=== PATIENT | male | born 1955 | race American Indian/Alaskan Native ===

== ENCOUNTER 2018-05-07 19:53 | Inpatient (IN) | payer OTHER ==
[2018-05-07 20:22] LABS: Basophils # (Auto) 0.1 K/mm3 (0.0-0.1); Basophils % (Auto) 0.6 % (0.0-1.8); Hematocrit 40.4 % (35.5-45.6); Hemoglobin 13.4 gm/dl (11.8-15.2); Lymphocytes # (Auto) 0.5 K/mm3 (1.2-5.4); Lymphocytes % (Auto) 4.2 % (13.4-35.0); Mean Corpuscular HGB Conc 33 % (32-34); Mean Corpuscular Hemoglobin 31 pg (28-32); Mean Corpuscular Volume 92 fl (84-94); Monocytes # (Auto) 0.8 K/mm3 (0.0-0.8); Monocytes % (Auto) 7.4 % (0.0-7.3); Platelet Count 245 K/mm3 (140-440); Red Blood Count 4.38 M/mm3 (3.65-5.03); Red Cell Distribution Width 13.4 % (13.2-15.2)
--- NOTE | 2018-05-07 20:28 | Emergency Department Report ---
HPI - General Chief Complaint: Alcohol Time Seen by Provider: 05/07/18 20:19 - HPI HPI: 63-year-old male presents to the emergency department with what appears to be alcohol intoxication. Patient does admit to heavy alcohol use this evening and says that he drinks just about every day. He says that he walked here this evening but is unable to give me a reason as to why he would choose to walk to the hospital. He does not have any particular complaints of pain. When asked if there is something that I can do for him, the patient says "take me to see my mother." Patient says that his mother is "in heaven." While he did mention that he would not mind being that he could see his mother, he denies any suicidal or homicidal ideations. The patient does not appear to have been at this hospital previously, at least during the time of this current EMR, and is otherwise a poor historian regarding his past medical history or his current reasons for visit. It turns out that this patient arrived to the emergency department via EMS. Labs show no blood alcohol on the system. Apparently the patient was found altered in someone's front yard and they called for EMS. ED Past Medical Hx - Past Medical History Previous Medical History?: Yes Hx Hypertension: Yes - Surgical History Past Surgical History?: No - Social History Smoking Status: Current Every Day Smoker Substance Use Type: Alcohol ED Review of Systems ROS: Stated complaint: ETOH Other details as noted in HPI Comment: Unobtainable due to pts medical conditions Physical Exam - Physical Exam Physical Exam: GENERAL: The patient is well-developed well-nourished. HENT: Normocephalic. Atraumatic. Patient has moist mucous membranes. EYES: Extraocular motions are intact. Pupils equal reactive to light bilaterally. NECK: Supple. Trachea is midline. CHEST/LUNGS: Clear to auscultation. There is no respiratory distress noted. HEART/CARDIOVASCULAR: Regular. There is no tachycardia. There is no murmur. ABDOMEN: Abdomen is soft, nontender. Patient has normal bowel sounds. There is no abdominal distention. SKIN: Skin is warm and dry. NEURO: The patient is awake but confused. No apparent sensory or motor deficits. The patient has normal speech. The patient is unable to answer many questions including the current date, the reasons he is here and has started to display some agitation. The patient is repeating some different numbers. Withdraws from painful stimuli. MUSCULOSKELETAL: There is no tenderness or deformity. There is no limitation range of motion. There is no evidence of acute injury. ED Medical Decision Making - Lab Data Result diagrams: 05/07/18 20:12 05/07/18 20:12 - EKG Data -: EKG Interpreted by Me EKG shows normal: sinus rhythm, axis, intervals, QRS complexes, ST-T waves ( nonspecific ST-T waves) Rate: normal - EKG Data When compared to previous EKG there are: previous EKG unavailable Interpretation: nonspecific ST-T wave henry - Radiology Data Radiology results: report reviewed PROCEDURE: CT HEAD/BRAIN WO CON TECHNIQUE: Computerized tomography of the head was performed without contrast material. HISTORY: AMS COMPARISON: No prior studies are available for comparison. FINDINGS: Brain: Brain density appears normal. No evidence of intracranial hemorrhage. No parenchymal hemorrhage, mass lesions or mass effect are seen. No abnormal extraxial fluid collects or masses are seen. Ventricles: Ventricles are normal size and are midline. Bone Windows: No evidence of skull fracture. Paranasal sinuses: Visualized portions are clear. Mastoid air cells: Clear IMPRESSION: Negative exam. Transcribed By: DFManasa Dictated By: TRAMAINE DELGADO MD Electronically Authenticated By: TRAMAINE DELGADO MD Signed Date/Time: 05/07/18 220 - Medical Decision Making I first, through triage, it appeared as if the patient was here for alcohol use and the patient even admitted to drinking heavily and daily. However the blood alcohol level was negative and this was checked twice. Then it came to light that the patient had arrived by EMS, instead of walking here, and had been found previously in someone's front yard. When this became more of an altered mental status issue, a CT of the head without contrast was done and resulted as negative for any bleed, shift, mass, ischemia or any other acute process. Patient's labs have been mostly unremarkable and do not show any etiology of his symptoms thus far, except for the patient has some renal insufficiency with a creatinine of 2.1 and a GFR of 38. We are waiting for urine for a urinalysis and urine drug screen. Patient was having some agitation and trying to get out of bed and wander so he was given a small dose of Ativan to help him rest and complete his workup. Vital signs stable throughout his ED course including being afebrile. Patient will be admitted to hospital for his altered mental status for further evaluation and any necessary treatment, and the patient has been accepted for admission by the hospitalist, Dr. Sky. - Differential Diagnosis Substance abuse, psychosis, dementia, UTI, dysrythmia Critical Care Time: No Critical care attestation.: If time is entered above; I have spent that time in minutes in the direct care of this critically ill patient, excluding procedure time. ED Disposition Clinical Impression: Renal insufficiency Altered mental status Qualifiers: Altered mental status type: unspecified Qualified Code(s): R41.82 - Altered mental status, unspecified Hypertension Qualifiers: Hypertension type: essential hypertension Qualified Code(s): I10 - Essential ( primary) hypertension Disposition: OP ADMIT IP TO THIS HOSP Is pt being admited?: Yes Condition: Fair Instructions: Hypertension (ED) Referrals: PRIMARY CARE, [Primary Care Provider] - 3-5 Days Time of Disposition: 22:53
[2018-05-07] MEDS ORDERED: VITAMIN B-1 100 MG, FOLVITE 1 MG, INFUVITE 10 ML in NACL 0.9% 1000 ML 1,000 ML IV ONE (20:34)
[2018-05-07 20:35] LABS: Calcium 10.1 mg/dL (8.4-10.2)
[2018-05-07] MEDS ORDERED: NACL 0.9% 1000 ML 1,000 ML IV ONE (21:03)
[2018-05-07 21:05] LABS: Albumin 5.1 g/dL (3.9-5); Bilirubin,Direct 0.3 mg/dL (0-0.2)
[2018-05-07] MEDS ORDERED: ATIVAN IV ONE (21:19)
--- NOTE | 2018-05-07 22:02 | Cat Scan Report ---
FINAL REPORT PROCEDURE: CT HEAD/BRAIN WO CON TECHNIQUE: Computerized tomography of the head was performed without contrast material. HISTORY: AMS COMPARISON: No prior studies are available for comparison. FINDINGS: Brain: Brain density appears normal. No evidence of intracranial hemorrhage. No parenchymal hemorrhage, mass lesions or mass effect are seen. No abnormal extraxial fluid collects or masses are seen. Ventricles: Ventricles are normal size and are midline. Bone Windows: No evidence of skull fracture. Paranasal sinuses: Visualized portions are clear. Mastoid air cells: Clear IMPRESSION: Negative exam.
[2018-05-07] MEDS ORDERED: TYLENOL PO PRN (22:49)
[2018-05-07] MEDS ORDERED: NACL 0.9% 1000 ML 1,000 ML IV SCH (23:00)
[2018-05-08 01:20] LABS: Creatine Kinase MB 42.5 ng/mL (0.0-4.0)
[2018-05-08] MEDS ORDERED: SODIUM BICARBONATE 150 MEQ in D5W 1,000 ML IV SCH (05:00)
--- NOTE | 2018-05-08 05:05 | History and Physical Report ---
CHIEF COMPLAINT: Change in mental status. HISTORY OF PRESENT ILLNESS: The patient is a 63-year-old man, brought to the Emergency Room with what the Emergency Room described as what appears to be an appearance of somebody who had alcohol intoxication. The patient admitted to the Emergency Room interview to be drinking alcohol heavily every day. The patient said he walked to the hospital, but could not explain why he had to walk to the hospital. He has no history of pain. He has no history of shortness of breath. The patient presented with state of confusion. The patient denied history of fever or chills and denied history of nausea or vomiting. The patient is a poor historian, who could not give an account of why he was brought to the Emergency Room. He claimed that he walked to the Emergency Room when we found that the patient was brought in by EMS and EMS said that the patient was found in somebody's front yard with confusion. PAST MEDICAL HISTORY: Pertinent for hypertension. PAST SURGICAL HISTORY: Unremarkable. FAMILY HISTORY: Family history is noncontributory. SOCIAL HISTORY: The patient drinks alcohol daily, smokes cigarettes, and does not use illicit drugs. MEDICATIONS: The patient's home medication is not known. ALLERGIES: There are no known drug allergies. REVIEW OF SYSTEMS: CONSTITUTIONAL: There is no fever, no chills, no diaphoresis. HEENT: There is no headache or sore throat. CARDIOVASCULAR SYSTEM: There is no chest pain or orthopnea. RESPIRATORY: There is no shortness of breath or cough. GASTROINTESTINAL SYSTEM: There is no nausea, no vomiting, no abdominal pain, diarrhea or constipation. NEUROLOGICAL SYSTEM: Altered mental status noted. No numbness, no dizziness. MUSCULOSKELETAL SYSTEM: There is no joint pain or swelling. DERMATOLOGICAL SYSTEM: There is no skin rash or itching. GENITOURINARY SYSTEM: There is no dysuria, hematuria or flank pain. Rest of system review is normal. PHYSICAL EXAMINATION: GENERAL: At the time of exam, the patient was found to be alert, oriented to person only, and not in acute distress. VIAL SIGNS: Show temperature of 98.9 degrees Fahrenheit, pulse of 92, respirations 18, blood pressure 167/90, O2 sat of 98% on room air. HEENT: Showed pupils to be equal, round, reactive to light and accommodation. Extraocular muscles are intact. NECK: Supple with no JVD or carotid bruit. CARDIOVASCULAR SYSTEM: Showed normal first and second heart sounds with no gallops or murmurs. RESPIRATORY SYSTEM: Showed good air entry on both sides of the lungs with no abnormal breath sounds. GASTROINTESTINAL SYSTEM: Showed abdomen to be full, soft, nontender with no organomegaly or rigidity. NEUROLOGICAL: Showed the patient to be confused, but with no focal deficit. MUSCULOSKELETAL SYSTEM: Showed no joint swelling or tenderness. DERMATOLOGICAL SYSTEM: Showed some hypertrophic scar in the anterior chest wall area. GENITOURINARY SYSTEM: Showed no costovertebral angle tenderness. PERTINENT LABORATORY AND IMAGING STUDIES: The patient had a CT of the head without contrast done that shows no acute intracranial findings. Lab results; the patient has CBC done with normal white count, normal hemoglobin and normal hematocrit with CBC differential showing elevated monocyte count of 7.4 and elevated segmented neutrophil count of 87.8. The patient's chemistry showed elevated BUN of 14 with elevated creatinine of 2.1 and the patient's ammonia level was normal. The patient's cardiac enzymes show high total CPK of 3081 with high CK-MB of 42.5, and normal CK-MB percentage index and normal troponin. The patient's TSH level came back normal. Toxicology screen shows normal salicylate, normal acetaminophen level with unremarkable alcohol level. DIAGNOSES: 1. Altered mental status. 1. Renal insufficiency. 2. Rhabdomyolysis. PLAN: 1. The patient will be admitted to telemetry. 2. The patient will have Nephrology consult with Dr. Darby Wise to manage his renal insufficiency. 3. The patient will have basic metabolic panel done in the morning and will have cardiac enzymes checked q. 6 hours x 2 more levels. 4. The patient will be on IV normal saline at 75 mL an hour. 5. The patient will be on heparin 5000 units subcutaneous q. 12 hours for DVT prophylaxis. 6. The patient will be on CIWA protocol and will be on oxygen via nasal cannula 2 liters per minute. JOB# [id number] OCN/NTS
[2018-05-08 05:14] LABS: Bilirubin,Urine NEG (Negative); Blood,Urine LG (Negative); Color,Urine Amber (Yellow); Hyaline Casts,Urine 4 /LPF; Mucus,Urine FEW /HPF; RBC,Urine < 1.0 /HPF (0.0-6.0)
[2018-05-08 05:21] LABS: Amphetamine Screen,Urine PRESUMPTIVE NEGATIVE; Benzodiazepines Screen,Urine PRESUMPTIVE NEGATIVE; Cannabinoid Screen,Urine PRESUMPTIVE NEGATIVE; Cocaine Screen,Urine PRESUMPTIVE NEGATIVE; Methadone Screen,Urine PRESUMPTIVE NEGATIVE; Opiate Screen,Urine PRESUMPTIVE NEGATIVE
[2018-05-08 06:48] LABS: BUN/Creatinine Ratio 29; Blood Urea Nitrogen 43 mg/dL (9-20); Calcium 9.2 mg/dL (8.4-10.2); Hemolysis Index 3
[2018-05-08 06:49] LABS: Creatine Kinase MB 50.5 ng/mL (0.0-4.0)
--- NOTE | 2018-05-08 08:55 | Consultation ---
History of Present Illness - Reason for Consult Consult date: 05/08/18 acute renal failure - History of Present Illness This is a 63 year old male who presented to the hospital via EMS for evaluation of Altered Mental Status. Patient Underwent Ct scan of head which was negative. Patient is currently awake and alert and oriented and states that he passed out yesterday from drinking too much beer. Patient states that he drinks a 6-pack can of beer most weekends. He denies smoking. States his appetite is good and denies any nausea/vomiting or diarrhea. Patient states the only medication he takes is Naproxen due to having arthritic pain in his knees. Patient denies history of Hypertension. States he saw [place] doctor for check -up on 02/20/2018 and was told everything was fine for his age per patient. Pertinent labs revealed and elevated serum creatinine of 2.1 on admission which has trend down to 1.5 today on IV hydration. Baseline serum creatinine unknown. We are being consulted for management of this patient's Acute Renal Failure. Past History Past Medical History: other (Denies history of Hypertension) Past Surgical History: Other (Has had Right hip replacement) Social history: alcohol abuse, other (. Drinks beer.) Family history: hypertension Medications and Allergies Allergies Allergy/AdvReac Type Severity Reaction Status Date / Time No Known Allergies Allergy Unverified 05/07/18 19:59 Home Medications Medication Instructions Recorded Confirmed Last Taken Type Naproxen Sodium [Aleve] 220 mg PO Q8H PRN 05/08/18 05/08/18 Unknown History Sildenafil Citrate [Viagra] 100 mg PO QDAY PRN 05/08/18 05/08/18 Unknown History Active Meds: Active Medications Acetaminophen (Tylenol) 650 mg PO Q4H PRN PRN Reason: Fever >101 Heparin Sodium (Porcine) (Heparin) 5,000 unit SUB-Q Q12HR BRISSA Sodium Bicarbonate 150 meq/ (Dextrose) 1,150 mls @ 75 mls/hr IV DIRECT BRISSA Stop: 05/08/18 20:19 Last Admin: 05/08/18 05:54 Dose: 75 mls/hr Review of Systems Constitutional: fatigue, no weight loss, no weight gain, no fever, no chills, no sweats, no weakness, no malaise, no poor appetite Ears, nose, mouth and throat: no ear pain, no ear discharge, no tinnitis, no decreased hearing, no nose pain, no nasal congestion Cardiovascular: no chest pain, no orthopnea, no palpitations, no rapid/ irregular heart beat, no edema, no syncope, no lightheadedness Respiratory: no cough with sputum, no excessive sputum, no hemoptysis, no shortness of breath, no dyspnea on exertion Gastrointestinal: no abdominal pain, no nausea, no vomiting, no diarrhea, no constipation, no change in bowel habits Genitourinary Male: no hematuria, no flank pain, no discharge, no urinary frequency, no urinary hesitancy Musculoskeletal: no neck stiffness, no neck pain, no shooting arm pain, no arm numbness/tingling, no low back pain, no shooting leg pain, no leg numbness/ tingling Integumentary: no rash, no pruritis, no redness, no sores, no wounds, no jaundice Neurological: no paralysis, no weakness, no parathesias, no numbness, no tingling, no seizures, no syncope, no tremors Psychiatric: no anxiety, no memory loss, no change in sleep habits, no sleep disturbances, no insomnia, no hypersomnia, no change in appetite, no change in libido Endocrine: no cold intolerance, no heat intolerance, no polyphagia, no excessive thirst, no polydipsia, no polyuria Hematologic/Lymphatic: no easy bruising, no easy bleeding, no lymphadenopathy Exam - Vital Signs Vital signs: Vital Signs Temp Pulse Resp BP Pulse Ox 98.9 F 92 H 18 167/90 98 05/07/18 20:32 05/07/18 20:32 05/07/18 20:32 05/07/18 20:32 05/07/18 20:32 - General Appearance General appearance: well-developed, appears stated age EENT: ATNC, PERRL, hearing intact, vision intact Neck: Present: neck supple, trachea midline Respiratory: Clear to Ascultation Heart: regular, S1S2 Gastrointestinal: Present: normoactive bowel sounds Integumentary: warm and dry Neurologic: alert and oriented x3 Musculoskeletal: Present: other (No edema) Psychiatric: mood/affect appropriate Results - Lab Results 05/07/18 20:12 05/08/18 05:31 Most recent lab results Calcium 9.2 mg/dL (8.4-10.2) 05/08/18 05:31 Assessment and Plan Acute Renal Failure likely secondary to Prerenal Azotemia vs AIN due to NSAID use Naproxen with possible underlying CKD: -Renal function reviewed. Serum creatinine trend down to 1.5 today from 2.1 yesterday, on IV hydration -Will obtain renal ultrasound to rule out obstruction -Continue with IV hydration but switch to NS@ 75 ml/hr -Monitor blood pressures, patient denies having Hypertension -Obtain urine lytes and SPEP -Will obtain vasculitis work-up if renal function worsen -Recheck renal panel in a.m -Monitor I/O's -Obtain daily weights -Avoid Nephrotoxic agents, advised to stop Naproxen and all NSAID's -Will monitor renal function closely Metabolic Acidosis: -Improving -On Sodium Bicarbonate 150 meq in D5W@ 75 ml/hr -Will discontinue bicarb drip and start oral sodium bicarbonate 650 mg po BID Altered Mental Status: -CT of head- Negative -As per primary team Alcohol Abuse: -Blaster Helper on cessation -As per primary
--- NOTE | 2018-05-08 09:51 | Progress Note ---
Assessment and Plan Assessment and plan: --Status post fall ; Probably secondary to alcohol intoxication, fall precautions Physical therapy as needed --History of alcohol intake; closely monitor for withdrawal symptoms Currently no agitation or tremulousness, Ativan as needed, CIWA protocol as needed Counseling done advised weight alcohol intake, thiamine and folic acid --Acute kidney injury; secondary to vasomotor nephropathy Renal function significantly improved, closely monitor, avoid nephrotoxins, nephrology following --Rhabdomyolysis; IV hydration, put output monitoring Closely monitor renal function --History of recreational drug use; marijuana Counseling done advised to quit recreational drug use --DVT prophylaxis; Lovenox Closely monitor the patient and adjust the management as needed Stable to be transferred out of telemetry to medical floor Ambulate as tolerated Possible discharge home tomorrow if stable History Interval history: Patient seen and examined medical records reviewed Admitted with alcohol intoxication and status post fall Patient feels better today No tremulousness or agitation Denies headache or dizziness Alert awake oriented 3 Vital signs reviewed Hospitalist Physical - Constitutional Vitals: Temp Pulse Resp BP Pulse Ox 97.5 F L 62 20 138/77 100 05/08/18 08:57 05/08/18 08:57 05/08/18 08:57 05/08/18 08:57 05/08/18 08:57 General appearance: Present: no acute distress, well-nourished - EENT Eyes: Present: PERRL, EOM intact - Neck Neck: Present: supple, normal ROM - Respiratory Respiratory effort: normal Respiratory: negative: rales, rhonchi, wheezing - Cardiovascular Rhythm: regular Heart Sounds: Present: S1 & S2 - Extremities Extremities: no ischemia, No edema - Abdominal General gastrointestinal: soft, non-tender, non-distended, normal bowel sounds - Integumentary Integumentary: Present: clear, warm - Psychiatric Psychiatric: appropriate mood/affect, cooperative - Neurologic Neurologic: CNII-XII intact, moves all extremities Results - Labs CBC & Chem 7: 05/07/18 20:12 05/08/18 05:31 Labs: Laboratory Last Values WBC 11.0 K/mm3 (4.5-11.0) 05/07/18 20:12 RBC 4.38 M/mm3 (3.65-5.03) 05/07/18 20:12 Hgb 13.4 gm/dl (11.8-15.2) 05/07/18 20:12 Hct 40.4 % (35.5-45.6) 05/07/18 20:12 MCV 92 fl (84-94) 05/07/18 20:12 MCH 31 pg (28-32) 05/07/18 20:12 MCHC 33 % (32-34) 05/07/18 20:12 RDW 13.4 % (13.2-15.2) 05/07/18 20:12 Plt Count 245 K/mm3 (140-440) 05/07/18 20:12 Lymph % (Auto) 4.2 % (13.4-35.0) L 05/07/18 20:12 [place] % (Auto) 7.4 % (0.0-7.3) H 05/07/18 20:12 Eos % (Auto) 0.0 % (0.0-4.3) 05/07/18 20:12 Baso % (Auto) 0.6 % (0.0-1.8) 05/07/18 20:12 Lymph # 0.5 K/mm3 (1.2-5.4) L 05/07/18 20:12 [place] # 0.8 K/mm3 (0.0-0.8) 05/07/18 20:12 Eos # 0.0 K/mm3 (0.0-0.4) 05/07/18 20:12 Baso # 0.1 K/mm3 (0.0-0.1) 05/07/18 20:12 Seg Neutrophils % 87.8 % (40.0-70.0) H 05/07/18 20:12 Seg Neutrophils # 9.7 K/mm3 (1.8-7.7) H 05/07/18 20:12 Sodium 144 mmol/L (137-145) 05/08/18 05:31 Potassium 4.5 mmol/L (3.6-5.0) 05/08/18 05:31 Chloride 104.9 mmol/L (98-107) 05/08/18 05:31 Carbon Dioxide 22 mmol/L (22-30) 05/08/18 05:31 Anion Gap 22 mmol/L 05/08/18 05:31 BUN 43 mg/dL (9-20) H 05/08/18 05:31 Creatinine 1.5 mg/dL (0.8-1.5) 05/08/18 05:31 Estimated GFR 57 ml/min 05/08/18 05:31 BUN/Creatinine Ratio 29 % 05/08/18 05:31 Glucose 91 mg/dL (75-100) 05/08/18 05:31 Calcium 9.2 mg/dL (8.4-10.2) 05/08/18 05:31 Total Bilirubin 1.20 mg/dL (0.1-1.2) 05/07/18 20:26 Direct Bilirubin 0.3 mg/dL (0-0.2) H 05/07/18 20:26 Indirect Bilirubin 0.9 mg/dL 05/07/18 20:26 AST 125 units/L (5-40) H 05/07/18 20:26 ALT 55 units/L (7-56) 05/07/18 20:26 Alkaline Phosphatase 52 units/L (35-129) 05/07/18 20:26 Ammonia 25.0 umol/L (25-60) 05/07/18 20:58 Total Creatine Kinase 2778 units/L (55-170) H 05/08/18 05:31 CK-MB (CK-2) 50.5 ng/mL (0.0-4.0) H 05/08/18 05:31 CK-MB (CK-2) Rel Index 1.8 (0-4) 05/08/18 05:31 Troponin T < 0.010 ng/mL (0.00-0.029) 05/08/18 05:31 Total Protein 9.2 g/dL (6.3-8.2) H 05/07/18 20:26 Albumin 5.1 g/dL (3.9-5) H 05/07/18 20:26 Albumin/Globulin Ratio 1.2 % 05/07/18 20:26 TSH 0.935 mlU/mL (0.270-4.200) 05/07/18 20:26 Urine Color Noa (Yellow) 05/08/18 04:43 Urine Turbidity Slightly-cloudy (Clear) 05/08/18 04:43 Urine pH 5.0 (5.0-7.0) 05/08/18 04:43 Ur Specific [place] 1.027 (1.003-1.030) 05/08/18 04:43 Urine Protein 100 mg/dl mg/dL (Negative) 05/08/18 04:43 Urine Glucose (UA) Neg mg/dL (Negative) 05/08/18 04:43 Urine Ketones 20 mg/dL (Negative) 05/08/18 04:43 Urine Blood Lg (Negative) 05/08/18 04:43 Urine Nitrite Neg (Negative) 05/08/18 04:43 Urine Bilirubin Neg (Negative) 05/08/18 04:43 Urine Urobilinogen 2.0 mg/dL (<2.0) 05/08/18 04:43 Ur Leukocyte Esterase Neg (Negative) 05/08/18 04:43 Urine WBC (Auto) 1.0 /HPF (0.0-6.0) 05/08/18 04:43 Urine RBC (Auto) < 1.0 /HPF (0.0-6.0) 05/08/18 04:43 U Epithel Cells (Auto) 1.0 /HPF (0-13.0) 05/08/18 04:43 Hyaline Casts 4 /LPF 05/08/18 04:43 Urine Mucus Few /HPF 05/08/18 04:43 Salicylates < 0.3 mg/dL (2.8-20.0) L 05/07/18 20:12 Urine Opiates Screen Presumptive negative 05/08/18 04:43 Urine Methadone Screen Presumptive negative 05/08/18 04:43 Acetaminophen < 5.0 ug/mL (10.0-30.0) L 05/07/18 20:12 Ur Barbiturates Screen Presumptive negative 05/08/18 04:43 Ur Phencyclidine Scrn Presumptive negative 05/08/18 04:43 Ur Amphetamines Screen Presumptive negative 05/08/18 04:43 U Benzodiazepines Scrn Presumptive negative 05/08/18 04:43 Urine Cocaine Screen Presumptive negative 05/08/18 04:43 U Marijuana (THC) Screen Presumptive negative 05/08/18 04:43 Drugs of Abuse Note Disclamer 05/08/18 04:43 Plasma/Serum Alcohol < 0.01 % (0-0.07) 05/07/18 20:58
[2018-05-08] MEDS ORDERED: NACL 0.9% 1000 ML 1,000 ML IV SCH (10:00)
[2018-05-08] MEDS: SODIUM BICARBONATE PO SCH ×2 (10:45→22:45)
[2018-05-08] MEDS: HEPARIN SUB-Q SCH ×2 (10:45→22:51)
[2018-05-08] MEDS ORDERED: ATIVAN IV PRN (11:30)
[2018-05-08] MEDS: FOLVITE PO SCH (12:49)
[2018-05-08] MEDS: VITAMIN B-1 PO SCH (12:49)
[2018-05-08 18:39] LABS: Creatinine,Urine 114.6 mg/dL (0.1-20.0)
[2018-05-09 06:42] LABS: Basophils # (Auto) 0.1 K/mm3 (0.0-0.1); Basophils % (Auto) 1.2 % (0.0-1.8); Eosinophils # (Auto) 0.1 K/mm3 (0.0-0.4); Eosinophils % (Auto) 1.2 % (0.0-4.3); Hematocrit 36.2 % (35.5-45.6); Hemoglobin 12.1 gm/dl (11.8-15.2); Lymphocytes # (Auto) 1.1 K/mm3 (1.2-5.4); Lymphocytes % (Auto) 26.1 % (13.4-35.0); Mean Corpuscular HGB Conc 33 % (32-34); Mean Corpuscular Hemoglobin 31 pg (28-32); Mean Corpuscular Volume 93 fl (84-94); Monocytes # (Auto) 0.5 K/mm3 (0.0-0.8); Monocytes % (Auto) 12.4 % (0.0-7.3); Platelet Count 196 K/mm3 (140-440); Red Blood Count 3.91 M/mm3 (3.65-5.03); Red Cell Distribution Width 13.6 % (13.2-15.2)
[2018-05-09 07:02] LABS: BUN/Creatinine Ratio 26; Blood Urea Nitrogen 23 mg/dL (9-20); Calcium 8.5 mg/dL (8.4-10.2); Hemolysis Index 4
[2018-05-09] MEDS: VITAMIN B-1 PO SCH (09:52)
[2018-05-09] MEDS: FOLVITE PO SCH (09:52)
[2018-05-09] MEDS: SODIUM BICARBONATE PO SCH (09:52)
[2018-05-09] MEDS: HEPARIN SUB-Q SCH (09:53)
--- NOTE | 2018-05-09 11:09 | Discharge Summary ---
Providers - Providers Date of Admission: 05/07/18 22:45 Date of discharge: 05/09/18 Attending physician: ARTI MURCIA 05/07/18 22:46 Consult to Physician [CONS] Routine Comment: Consulting Provider: RAMONITA MICHAEL Physician Instructions: Reason For Exam: RENAL INSUFFICIENCY Primary care physician: [employer] Hospitalization Reason for admission: altered level of consciousness/status post fall/acute kidney injury Condition: Fair Pertinent studies: CT head without contrast; no acute abnormality Hospital course: 63-year-old male patient with significant past medical history of hypertension and alcohol use follows at the [facility], was brought by the EMS found wandering in some magali as his front yard confused. Patient was noted to be metabolic encephalopathy at the time of admission Admitted to the hospital symptomatically managed Workup is consistent with acute kidney injury, rhabdomyolysis Symptomatically managed Closely monitor for alcohol withdrawal symptoms, placed on CIWA protocol Symptoms significantly improved, ambulatory and tolerating oral nutrition Patient's CK levels improved from 3081 - 1883 Renal failure completely resolved, likely imbalance corrected Today patient is comfortable in no new complaints Vital signs reviewed stable Physical examination no new changes Patient [facility] me [facility], check CK levels and BMP Patient verbalized understanding DC planning per case management Discharge Diagnosis: --Metabolic encephalopathy present on admission; resolved --Status post fall ; Probably secondary to alcohol intoxication, fall precautions --History of alcohol intake; no alcohol withdrawal symptoms --Acute kidney injury; secondary to vasomotor nephropathy, resolved --Rhabdomyolysis; IV hydration, put output monitoring --History of recreational drug use; marijuana counseling done --Chronic alcohol use; counseling done Disposition: DC-01 TO HOME OR SELFCARE Time spent for discharge: 31 min Core Measure Documentation - Palliative Care Palliative Care/ Comfort Measures: Not Applicable - Core Measures Any of the following diagnoses?: none Exam - Constitutional Vitals: Temp Pulse Resp BP Pulse Ox 97.5 F L 70 16 114/74 99 05/09/18 06:08 05/09/18 06:08 05/09/18 06:08 05/09/18 06:08 05/09/18 06:08 General appearance: Present: no acute distress, well-nourished - EENT Eyes: Present: PERRL, EOM intact - Neck Neck: Present: supple, normal ROM - Respiratory Respiratory effort: normal Respiratory: negative: rales, rhonchi, wheezing - Cardiovascular Rhythm: regular Heart Sounds: Present: S1 & S2 - Extremities Extremities: no ischemia, No edema Peripheral Pulses: within normal limits - Abdominal General gastrointestinal: Present: soft, non-tender, non-distended, normal bowel sounds - Integumentary Integumentary: Present: clear, warm - Musculoskeletal Musculoskeletal: strength equal bilaterally - Psychiatric Psychiatric: appropriate mood/affect, cooperative - Neurologic Neurologic: CNII-XII intact, moves all extremities Plan Activity: advance as tolerated, fall precautions Diet: regular Additional Instructions: Advised to quit Alcohol and recreational drug marijuana use. Advised patient to take plenty oral fluids. Fall precautions, . Check CPK, BMP in 2-3 days at PMD office Follow up with: PRIMARY CARE, [Primary Care Provider] - 3-5 Days Prescriptions: Folic Acid [Folvite] 1 mg PO QDAY #30 tablet Thiamine [Vitamin B-1] 100 mg PO QDAY #30 tablet
--- NOTE | 2018-05-09 11:50 | Progress Note ---
Assessment and Plan Acute Renal Failure likely secondary to Prerenal Azotemia vs AIN due to NSAID use Naproxen with possible underlying CKD: -Renal function reviewed. Serum creatinine trend down to 0.9 today, normalized on IV hydration -On IV hydration with NS@ 75 ml/hr -Monitor blood pressures, patient denies having Hypertension -Urine lytes reviewed -Monitor I/O's -Obtain daily weights -Avoid Nephrotoxic agents, advised to stop Naproxen and all NSAID's -Will monitor renal function closely -Follow-up with Nephrology in 2 weeks of discharge at [facility] located at [address] [place] [address]. Metabolic Acidosis: -Resolved -Discontinue oral sodium bicarbonate 650 mg po BID Altered Mental Status: -CT of head- Negative -As per primary team Alcohol Abuse: -Jumpbasting Canvas Baster on cessation -As per primary Subjective Date of service: 05/09/18 Principal diagnosis: ARF Interval history: Patient seen sitting up in chair at bedside. Awake and alert. No family at bedside. Objective - Vital Signs Vital signs: Vital Signs - 12hr 05/09/18 05/09/18 00:30 06:08 Temperature 97.7 F 97.5 F L Pulse Rate 81 70 Respiratory 18 16 Rate Blood Pressure 141/69 114/74 O2 Sat by Pulse 100 99 Oximetry - General Appearance General appearance: well-developed, fatigue EENT: ATNC, PERRL, hearing intact, vision intact Neck: no JVD, supple Respiratory: Present: Clear to Ascultation Cardiology: regular, S1S2 Gastrointestinal: normoactive bowel sounds Integumentary: warm and dry Neurologic: alert and oriented x3 Musculoskeletal: other (No edema) Psychiatric: cooperative - Lab 05/09/18 05:42 05/09/18 05:42 Most recent lab results Calcium 8.5 mg/dL (8.4-10.2) 05/09/18 05:42 Phosphorus 2.70 mg/dL (2.5-4.5) 05/09/18 05:42 Urine Creatinine 114.6 mg/dL (0.1-20.0) H 05/08/18 18:10 Urine Sodium 12 mmol/L 05/08/18 18:10
[2018-05-09 15:30] VITALS: BP 121/72
== END 2018-05-09 16:43 | disposition home or self-care (01) | DRG 70 ==
LOC: ED 19:53 → 4A 22:45 → 3A 05-08 14:51
PROVIDERS: ADMIT Internal Medicine; ATTEND Internal Medicine
DX: G93.41 Metabolic encephalopathy (principal); N17.0 Acute kidney failure with tubular necrosis; M62.82 Rhabdomyolysis; E87.2 Acidosis; I10 Essential (primary) hypertension; Y90.0 Blood alcohol level of less than 20 mg/100 ml; W18.39XA Other fall on same level, initial encounter; F10.129 Alcohol abuse with intoxication, unspecified; F12.90 Cannabis use, unspecified, uncomplicated; F17.210 Nicotine dependence, cigarettes, uncomplicated; Z82.49 Family history of ischemic heart disease and other diseases of the circulatory system; Z79.899 Other long term (current) drug therapy; Z79.1 Long term (current) use of non-steroidal anti-inflammatories (NSAID); Z71.41 Alcohol abuse counseling and surveillance of alcoholic; Y93.89 Activity, other specified; Y92.89 Other specified places as the place of occurrence of the external cause; Y99.8 Other external cause status; Z71.51 Drug abuse counseling and surveillance of drug abuser
CPT/HCPCS: 36415; 70450; 80048; 80074; 80307; 80320; 81001; 82140; 82550; 82553; 82570; 83930; 83935; 84100; 84300; 84443; 84484; 85025; 93005; 93010; 96361; 96374; G0480; J1644; J2060; J3411; J7030; J7070